=== PATIENT | male | born 1965 | race African-American/Black ===

== ENCOUNTER 2023-05-06 18:48 | Emergency (ER) | payer MEDICAID ==
[~2023-05-06] VITALS: Ht 177.8 cm; Wt 82.0 kg
[2023-05-06 18:50] VITALS: TEMP 98.4; O2SAT 99
[2023-05-06] MEDS ORDERED: HYDROCODONE/ACETAMINOPHEN 5/325MG TABLET PO STA (19:11)
[2023-05-06] MEDS ORDERED: KETOROLAC 30MG/ML VIAL IM STA (19:11)
[2023-05-06 19:43] VITALS: BP 146/86; PULSE 92; RESP 18
[2023-05-06] MEDS ORDERED: HYDR-4001 MT (21:13)
[2023-05-06] MEDS ORDERED: NAPR500T7 MT (21:13)
== END 2023-05-06 21:46 | disposition home or self-care (01) ==
LOC: ER 18:48
DX: S42.002A Fracture of unspecified part of left clavicle, initial encounter for closed fracture (principal); R51.9 Headache, unspecified; M54.2 Cervicalgia; V49.49XA Driver injured in collision with other motor vehicles in traffic accident, initial encounter; Y93.89 Activity, other specified; Y92.89 Other specified places as the place of occurrence of the external cause; Y99.8 Other external cause status
CPT/HCPCS: 99285; 70450; 71045; 73030; 72125; 96372; J1885

== ENCOUNTER 2024-02-03 00:36 | Inpatient (IN) | payer MEDICAID ==
[~2024-02-03] VITALS: Ht 167.6 cm; Wt 73.5 kg
[~2024-02-03 00:36] MED LIST: HYDR-4001 MT; NAPR500T7 MT
[2024-02-03 00:42] VITALS: O2SAT 95
[2024-02-03 01:52] LABS: CHLORIDE 100 mEq/L (98-107); POTASSIUM 3.4 mEq/L (3.5-5.1); SODIUM 133 mEq/L (136-145)
[2024-02-03 01:53] LABS: CALCIUM 9.3 mg/dL (8.7-10.4); CARBON DIOXIDE 23 mEq/L (21-32); HEMATOCRIT. 42.9 % (42.0-52.0); HEMOGLOBIN. 14.5 g/dL (14.0-18.0); MEAN CORPUSCULAR HEMOGLOBIN 31.2 pg (28.0-32.0); MEAN CORPUSCULAR HGB CONC 33.8 g/dL (31.0-37.0); MEAN CORPUSCULAR VOLUME 92.3 fL (80.0-94.0); MEAN PLATELET VOLUME 8.1 fl (7.4-10.4); PLATELET 268 x1000/uL (130-400); RED BLOOD CELL COUNT 4.64 mill/uL (4.7-6.1); RED CELL DISTRIBUTION WIDTH 13.3 % (11.6-14.6); WHITE BLOOD COUNT 15.7 x1000/uL (4.5-11.0)
[2024-02-03 01:55] LABS: DIFFERENTIAL COMMENT 1
[2024-02-03 01:58] LABS: CREATININE 1.6 mg/dL (0.6-1.3); GLUCOSE 71 mg/dL (70-105); UREA NITROGEN BLOOD 33 mg/dL (9-23)
[2024-02-03 01:59] LABS: TROPONIN I HIGH SENSITIVITY 8 ng/L (3.0-53)
[2024-02-03 02:02] LABS: ETHANOL BLOOD < 10 mg/dL (<10)
[2024-02-03] MEDS: LORAZEPAM 2MG/ML INJ IV ONE (02:35)
[2024-02-03 03:43] LABS: PLATELET ESTIMATE NORMAL
[2024-02-03 03:45] VITALS: BP 121/79; PULSE 88; RESP 22; TEMP 37.05852; O2SAT 96
[2024-02-03] MEDS ORDERED: LORAZEPAM 2MG/ML INJ IV PRN ×2 (04:00→20:00)
[2024-02-03] MEDS ORDERED: ONDANSETRON HCL 4MG/2ML INJ IV PRN (04:00)
[2024-02-03] MEDS ORDERED: IPRATROPIUM/ALBUTEROL 0.5-3(2.5)MG/3ML NEB HHN PRN (04:00)
[2024-02-03] MEDS: FOLIC ACID 1 MG, THIAMINE HCL 100 MG, MVI, ADULT NO.1 10 ML in DEXTROSE 5% WATER 988.8 ML IV ONE (05:08)
[2024-02-03] MEDS: KCL 20MEQ/100ML PREMIX 100 ML IV NR (05:09)
[2024-02-03 06:00] VITALS: BP 112/76; PULSE 85; RESP 22; TEMP 36.83628; O2SAT 95
[2024-02-03 10:09] LABS: TROPONIN I HIGH SENSITIVITY 6 ng/L (3.0-53)
[2024-02-03 10:15] VITALS: TEMP 36.94740; O2SAT 98
[2024-02-03 11:16] VITALS: BP 120/87; PULSE 85; RESP 22; TEMP 98.5
[2024-02-03] MEDS ORDERED: SODIUM CHLORIDE 0.9% 1,000 ML IV SCH (16:30)
[2024-02-04] MEDS ORDERED: ENOXAPARIN 40MG/0.4ML SYR SUBCUT SCH (09:00)
== END 2024-02-04 14:00 | disposition left against medical advice (07) | DRG 816 ==
LOC: ER 00:36 → EDBEDREQ 02:46 → EDBEDREQTM 02:46 → 5WST 03:31
PROVIDERS: ADMIT Internal Medicine; ATTEND Internal Medicine
DX: T40.5X1A Poisoning by cocaine, accidental (unintentional), initial encounter (principal); G92.8 Other toxic encephalopathy; N17.9 Acute kidney failure, unspecified; E86.0 Dehydration; T51.0X1A Toxic effect of ethanol, accidental (unintentional), initial encounter; F10.129 Alcohol abuse with intoxication, unspecified; Z53.29 Procedure and treatment not carried out because of patient's decision for other reasons; D72.829 Elevated white blood cell count, unspecified; E87.6 Hypokalemia; R00.0 Tachycardia, unspecified; F14.129 Cocaine abuse with intoxication, unspecified; Y90.9 Presence of alcohol in blood, level not specified; R94.31 Abnormal electrocardiogram [ECG] [EKG]; Y92.89 Other specified places as the place of occurrence of the external cause
CPT/HCPCS: 36415; 71045; 80048; 80320; 83036; 84484; 85025; 93005; 99291; J2060; J3411; J3480; J3490; J7030; J7070; G0480